=== PATIENT | male | born 1980 | race Caucasian/White ===

== ENCOUNTER → 2016-10-19 | Outpatient (CLI) | payer OTHER ==
--- NOTE | 2016-10-19 10:30 | RAD ---
Indication: Right knee pain. Time of exam 10:11 AM 2 views of the right knee were obtained. Alignment is normal. The joint spaces are well maintained. The articular surfaces are smooth. No fracture, dislocation or effusion is identified. Impression: No acute bony abnormality is detected.
--- NOTE | 2016-10-19 10:31 | RAD ---
Indication: Right hip pain. Time of exam 10:11 AM 2 views of the right hip demonstrate normal femoral acetabular alignment. The femoral head and neck are intact. No fracture is identified. The joint space is fairly well-maintained. Impression: No acute bony abnormality is detected.
== END | disposition home or self-care (01) ==
LOC: RAD 09:30
PROVIDERS: ATTEND Neuromusculoskeletal Medicine, Sports Medicine
DX: M25.561 Pain in right knee (principal); M25.551 Pain in right hip
CPT/HCPCS: 73502; 73560